=== PATIENT | male | born 1975 | race Caucasian/White ===

== ENCOUNTER 2019-05-14 15:36 | Inpatient (IN) | payer SELFPAY ==
[2019-05-14] VITALS (7 sets, daily range): BP systolic 132–161; BP diastolic 91–108
[~2019-05-14] VITALS: Ht 175 cm; Wt 84.9 kg
[2019-05-14] MEDS ORDERED: 1/2 NS IV SOLUTION 1,000 ML IV PRN (18:07)
[2019-05-14] MEDS ORDERED: THIAMINE INJECTION 100 MG, FOLIC ACID INJECTION 1 MG, MAGNESIUM SULFATE 2 GM, VITAMIN M... IV SCH ×5 (18:07)
[2019-05-14] MEDS ORDERED: LORazepam INJ 2 MG/ML (ATIVAN) VIAL IM/IV PRN (18:15)
[2019-05-14] MEDS ORDERED: ONDANSETRON 4 MG (ZOFRAN) ORAL DISSOLVE TAB SL PRN (18:15)
[2019-05-14] MEDS ORDERED: SENNA W/DOCUSATE (SENOKOT S) TABLET PO PRN (18:15)
[2019-05-14] MEDS ORDERED: D5 1/2 NS 1000 ML IV SOLUTION 1,000 ML IV PRN (18:15)
[2019-05-14] MEDS ORDERED: ONDANSETRON 4 MG/2 ML (SDV) Z0FRAN IV PRN (18:15)
[2019-05-14] MEDS ORDERED: ANTACID SUSP 30 ML UDC (MYLANTA) PO PRN (18:15)
[2019-05-14] MEDS ORDERED: ACETAMINOPHEN 325 MG TABLET PO PRN (18:15)
[2019-05-14] MEDS: ENOXAPARIN 40 MG/0.4 ML (LOVENOX) SYR SC SCH (18:33)
[2019-05-14] MEDS: THIAMINE INJECTION 100 MG, FOLIC ACID INJECTION 1 MG, MAGNESIUM SULFATE 2 GM, VITAMIN M... IV SCH ×5 (18:45)
[2019-05-14] MEDS: LORazepam INJ 2 MG/ML (ATIVAN) VIAL IV PRN (18:46)
[2019-05-14] MEDS: inSUlin ASPART (NovoLOG) 1 UNIT/0.01 ML (CHARGE PER UNIT) SC SCH (21:35)
[2019-05-15] VITALS (22 sets, daily range): BP systolic 105–144; BP diastolic 73–111
[2019-05-15] MEDS: LORazepam INJ 2 MG/ML (ATIVAN) VIAL IV PRN ×6 (00:08→22:20)
[2019-05-15 04:04] LABS: BASOPHILS % (AUTO) 0 % (0-10); EOSINOPHILS # (AUTO) 0.1 10^3/uL (0.0-0.3); EOSINOPHILS % (AUTO) 2 % (0-10); HEMATOCRIT 43 % (40-54); HEMOGLOBIN 14.1 G/DL (13.3-17.7); LYMPHOCYTES # (AUTO) 0.8 X 10^3 (1.0-4.0); LYMPHOCYTES % (AUTO) 26 % (12-44); MEAN CORPUSCULAR HEMOGLOBIN 32 PG (25-34); MEAN CORPUSCULAR HGB CONC 33 G/DL (32-36); MEAN CORPUSCULAR VOLUME 98 FL (80-99); MEAN PLATELET VOLUME 12.6 FL (7.4-10.4); MONOCYTES # (AUTO) 0.4 X 10^3 (0.0-1.0); MONOCYTES % (AUTO) 14 % (0-12); NEUTROPHILS # (AUTO) 1.9 X 10^3 (1.8-7.8); NEUTROPHILS % (AUTO) 58 % (42-75); PLATELET COUNT 55 10^3/uL (130-400); RED CELL DISTRIBUTION WIDTH 13.9 % (10.0-14.5); WHITE BLOOD COUNT 3.3 10^3/uL (4.3-11.0)
[2019-05-15 04:32] LABS: ALANINE AMINOTRANSFERASE 73 U/L (0-55); ALBUMIN 4.1 GM/DL (3.2-4.5); ALKALINE PHOSPHATASE 47 U/L (40-136); BILIRUBIN,TOTAL 1.8 MG/DL (0.1-1.0); BUN/CREATININE RATIO 10; CALCIUM 8.9 MG/DL (8.5-10.1); CARBON DIOXIDE 20 MMOL/L (21-32); CHLORIDE 104 MMOL/L (98-107); CREATININE SERUM 0.67 MG/DL (0.60-1.30); GFR ESTIMATED > 60; GLUCOSE 95 MG/DL (70-105); MAGNESIUM 2.1 MG/DL (1.6-2.4); POTASSIUM 3.8 MMOL/L (3.6-5.0); SODIUM 138 MMOL/L (135-145); TOTAL PROTEIN 6.3 GM/DL (6.4-8.2)
[2019-05-15] MEDS: POTASSIUM CL 10MEQ/50ML IVPB 50 ML IV SCH (05:36)
[2019-05-15] MEDS: KCL 20 MEQ TAB (K-DUR) PO SCH (05:36)
[2019-05-15] MEDS: MAGNESIUM 1 GM/100 ML IVPB 100 ML IV SCH (05:36)
[2019-05-15] MEDS: inSUlin ASPART (NovoLOG) 1 UNIT/0.01 ML (CHARGE PER UNIT) SC SCH ×4 (05:36→20:48)
--- NOTE | 2019-05-15 06:11 | Pulmonary Consultation ---
History of Present Illness History of Present Illness Date Seen by Provider: May 15, 2019 Date of Admission Allergies and Home Medications Allergies Coded Allergies: No Known Drug Allergies (Unverified , 05/14/19) Past Jerkwmz-Qpxlhb-Leatsz Hx Patient Social History Alcohol Use: Regular Use Number of Drinks Today: 0 Alcohol Beverage of Choice: Vodka Recreational Drug Use: No Smoking Status: Never a Smoker Recent Foreign Travel: No Contact w/Someone Who Travel: No Recent Infectious Disease Expo: No Recent Hopitalizations: Yes (March 2019 alcohol detox) Immunizations Up To Date PED Vaccines UTD: Yes Seasonal Allergies Seasonal Allergies: No Past Medical History Surgeries: No Respiratory: No Currently Using CPAP: No Currently Using BIPAP: No Cardiac: Yes Neurological: Yes (Seizure r/t attempted alcohol detox at home) Genitourinary: No Gastrointestinal: No Musculoskeletal: No Endocrine: No HEENT: No Cancer: No Psychosocial: Yes Anxiety Integumentary: No Blood Disorders: No Adverse Reaction/Blood Tranf: No Sepsis Event Evaluation Height, Weight, BMI Height: '" Weight: lbs. oz. kg; 27.46 BMI Method: Exam Exam Vital Signs Date Time Temp Pulse Resp B/P (MAP) Pulse Ox O2 Delivery O2 Flow Rate FiO2 05/15/19 04:00 73 12 118/100 (106) 97 Room Air 05/15/19 03:15 36.6 Room Air 05/15/19 03:15 96 Room Air 05/15/19 03:00 65 12 114/87 (96) 96 Room Air 05/15/19 02:00 68 14 133/111 (118) 96 Room Air 05/15/19 01:00 72 05/15/19 01:00 72 15 127/88 (101) 95 Room Air 05/15/19 00:15 36.7 Room Air 05/15/19 00:00 71 15 130/98 (109) 97 Room Air 05/15/19 00:00 97 Room Air 05/14/19 23:00 72 13 138/102 (114) Room Air 05/14/19 22:00 74 24 132/93 (106) 96 Room Air 05/14/19 21:00 82 16 132/94 (107) 96 Room Air 05/14/19 20:00 86 19 133/95 (108) Room Air 05/14/19 20:00 37.0 05/14/19 20:00 95 Room Air 05/14/19 19:00 105 05/14/19 19:00 105 15 161/91 (114) Room Air 05/14/19 18:00 114 21 147/108 (121) 96 Room Air 05/14/19 17:30 92 20 142/104 (117) 90 Room Air 05/14/19 17:20 115 05/14/19 17:15 97 Room Air I & O 05/15/19 07:00 Intake Total 1935.2 ml Output Total 2275 ml Balance -339.8 ml Height & Weight Height: '" Weight: lbs. oz. kg; 27.46 BMI Method: Capillary Refill: Less Than 3 Seconds Results Lab Laboratory Tests 05/15/19 03:41 Assessment/Plan Assessment/Plan Alcohol depend PETER TOBIAS DO May 15, 2019 06:11
[2019-05-15] MEDS: LACTATED RINGERS 1,000 ML IV SCH ×2 (06:24→20:47)
--- NOTE | 2019-05-15 07:57 | Diagnostic Imaging Report ---
INDICATION: Shortness of air. COMPARISON: None TECHNIQUE: Single frontal view of the chest. FINDINGS: There is mild elevation of the right hemidiaphragm, otherwise lung volumes appear normal. No focal consolidation is seen. There is no pleural effusion or pneumothorax. The cardiac silhouette is normal in size and contour. IMPRESSION:. No acute pulmonary abnormality seen. Dictated by: Dictated on workstation # [id number]
[2019-05-15] MEDS: FOLIC ACID 1 MG TAB PO SCH (08:00)
[2019-05-15] MEDS: PANTOPRAZOLE 40 MG (PROTONIX) VIAL IV SCH (08:00)
[2019-05-15] MEDS: THIAMINE INJECTION 100 MG, FOLIC ACID INJECTION 1 MG, MAGNESIUM SULFATE 2 GM, VITAMIN M... IV SCH ×5 (08:00)
[2019-05-15] MEDS ORDERED: LORA10TA76 PO (09:25)
[2019-05-15] MEDS ORDERED: LISI10TA2 PO (09:25)
--- NOTE | 2019-05-15 09:25 | NUR ---
SPOKE WITH THE PT AND CALLED [facility] TO COMPLETE THE MED REC. PT SAYS HE TAKES LISINOPRIL 10MG (LAST FILLED 03-29-2019 #30)- I DOCUMENTED THE PAST DUE FILL DATE ON THE MED REC. PT ALSO SAYS HE TAKES SERTRALINE 100MG. WHEN I CALLED [facility] THEY FILLED SERTRALINE 50MG ON 01-08-2019 #30 AND HAD A SCRIPT ON HOLD FOR SERTRALINE 100MG THAT WAS SENT IN ON 05-11-2019 BUT WAS NEVER PICKED UP. DUE TO THE PAST DUE FILL I DID NOT INCLUDE THIS ON THE MED REC. OTC MEDS: DIANNA NAIK
--- NOTE | 2019-05-15 11:37 | NUR ---
CM/SS: Visited with pt as per consult for need Plan: Pt plans to seek Alcohol treatment services on an out patient basis Summary: Visited with pt as to his reason for admission. Pt reports that he has a problem with alcohol. Pt is given options as to out patient services for alcohol treatment, or inpatient services. Pt feels as if outpatient services can meet his needs. Pt reports his parents made him come to their home and sought help for him or he would of . Pt reports, he has a and children ages 6 and 9, and that when he lost his job, in [place], [place] - reportedly unrelated to alcohol, his left and took the children. Pt reports that he feels as if he has to get back on track. Pt currently has no insurance. Pt is open to getting information on services in the area for alcohol treatment. Patient is provided information on [facility], as well as [facility], and [facility] support program. Pt is given copies and contact information. Pt expresses appreciation for the information and is encouraged to contact each agency and see which one he is most comfortable with and the one that can get him in the quickest. He is open to do so. Pt thanks this worker for the information.
--- NOTE | 2019-05-15 17:16 | History & Physical-Hospitalist ---
History of Present Illness HPI/Chief Complaint Ta Delacruz is a 49-year-old male with past medical history of alcohol dependence who presented with alcohol withdrawal requesting to detox. He reports that his last drink was 24-48 hours before his arrival. He reports drinking 1/2-1 pint of vodka daily for the past couple years. He says that he did stop drinking in March and had an alcohol withdrawal seizure. He was hospitalized at a different facility at that time. He reports having tremors. He denies any headache or confusion. He denies any nausea or vomiting. He denies any visual/auditory/tactile hallucinations. He denies any fevers or chills. He denies any chest pain or shortness of breath. He denies any abdominal pain. Source: patient Exam Limitations: no limitations Date Seen 05/15/19 Time Seen by a Provider: 09:50 Attending Physician Daria Quintero MD PCP Mariela Sierra MD Referring Physician Date of Admission May 14, 2019 at 17:06 Home Medications & Allergies Home Medications Reviewed patient Home Medication Reconciliation performed by pharmacy medication reconciliations critical systems technician and/or nursing. Patients Allergies have been reviewed. Allergies Allergies Coded Allergies No Known Drug Allergies (Unverified05/14/19) Past Rjipdmt-Lrzzto-Kslemq Hx Past Med/Social Hx: Reviewed Nursing Past Med/Soc Hx Patient Social History Alcohol Use: Regular Use Number of Drinks Today: 0 Alcohol Beverage of Choice: Vodka Recreational Drug Use: No Smoking Status: Never a Smoker Physical Abuse Screen: No Sexual Abuse: No Recent Foreign Travel: No Contact w/other who traveled: No Recent Hopitalizations: Yes (March 2019 alcohol detox) Recent Infectious Disease Expo: No Immunizations Up To Date Pediatric: Yes Seasonal Allergies Seasonal Allergies: No Past Medical History Currently Using CPAP: No Currently Using BIPAP: No Psychosocial: Anxiety History of Blood Disorders: No Adverse Reaction to Blood Varghese: No Review of Systems Constitutional: no symptoms reported EENTM: no symptoms reported Respiratory: no symptoms reported Cardiovascular: no symptoms reported Gastrointestinal: no symptoms reported Genitourinary: no symptoms reported Musculoskeletal: no symptoms reported Skin: no symptoms reported Psychiatric/Neurological: Anxiety, Tremors Physical Exam Physical Exam Vital Signs Vital Signs - First Documented 05/14/19 05/14/19 05/14/19 17:15 17:20 17:30 Pulse 115 Resp 20 B/P (MAP) 142/104 (117) Pulse Ox 97 O2 Delivery Room Air Capillary Refill : Less Than 3 Seconds Height, Weight, BMI Height: '" Weight: lbs. oz. kg; 27.46 BMI Method: General Appearance: Anxious, Mild Distress HEENT: PERRL/EOMI, Pharynx Normal Neck: Normal Inspection, Supple Respiratory: Lungs Clear, Normal Breath Sounds, No Respiratory Distress Cardiovascular: No Edema, No Murmur, Tachycardia Gastrointestinal: Normal Bowel Sounds, Non Tender, Soft Extremity: Normal Inspection, Non Tender, No Pedal Edema Neurologic/Psychiatric: Alert, Oriented x3, Other (Tremulous) Skin: Warm/Dry, Diaphoresis, Other (Facial flushing) Results Results/Procedures Labs Laboratory Tests 05/15/19 03:41 Patient resulted labs reviewed. Imaging: Reviewed Imaging Report Assessment/Plan Admission Diagnosis Alcohol dependence with acute alcohol withdrawal Admission Status: Inpatient Order (span 2 midnights) Reason for Inpatient Admission: Alcohol withdrawal requiring IV benzos Assessment and Plan Alcohol dependence with acute alcohol withdrawal Acute alcoholic hepatitis Alcohol undetectable on arrival Last drink 24-48 hours prior to admission AST/ALT/T bili mildly elevated, continue to trend CIWA protocol initiated Continue vitamin replacement Monitor labs daily Continue IV fluid replacement Leukopenia Thrombocytopenia WBC 3.3, platelets 55 Likely due to alcohol Check B12 and folate levels Continue to monitor DVT prophylaxis: Lovenox Diagnosis/Problems Diagnosis/Problems (1) Alcohol dependence with withdrawal Status: Acute (2) Leukopenia Status: Acute (3) Thrombocytopenia Status: Acute Clinical Quality Measures DVT/VTE Risk/Contraindication: Risk Factor Score Per Nursin RFS Level Per Nursing on Admit: 1=Low/No VTE PPX DARIA QUINTERO MD May 15, 2019 17:03
[2019-05-15] MEDS: ENOXAPARIN 40 MG/0.4 ML (LOVENOX) SYR SC SCH (17:47)
[2019-05-15] MEDS ORDERED: LIDOCAINE UROJET 2% GEL 10 ML PKG ONE (19:52)
[2019-05-15] MEDS: DexMEDEtomidine 250 ML DRIP 250 ML IV PRN (20:21)
[2019-05-16] VITALS (22 sets, daily range): BP systolic 105–138; BP diastolic 68–107
[2019-05-16] MEDS: LACTATED RINGERS 1,000 ML IV SCH ×2 (02:20→16:30)
[2019-05-16] MEDS: LORazepam INJ 2 MG/ML (ATIVAN) VIAL IV PRN (03:33)
[2019-05-16 03:41] LABS: BASOPHILS % (AUTO) 0 % (0-10); EOSINOPHILS # (AUTO) 0.1 10^3/uL (0.0-0.3); EOSINOPHILS % (AUTO) 2 % (0-10); HEMATOCRIT 40 % (40-54); HEMOGLOBIN 13.7 G/DL (13.3-17.7); LYMPHOCYTES % (AUTO) 20 % (12-44); MEAN CORPUSCULAR HEMOGLOBIN 33 PG (25-34); MEAN CORPUSCULAR HGB CONC 34 G/DL (32-36); MEAN CORPUSCULAR VOLUME 97 FL (80-99); MEAN PLATELET VOLUME 11.6 FL (7.4-10.4); MONOCYTES # (AUTO) 0.6 X 10^3 (0.0-1.0); MONOCYTES % (AUTO) 12 % (0-12); NEUTROPHILS # (AUTO) 3.1 X 10^3 (1.8-7.8); NEUTROPHILS % (AUTO) 66 % (42-75); PLATELET COUNT 63 10^3/uL (130-400); RED CELL DISTRIBUTION WIDTH 13.6 % (10.0-14.5); WHITE BLOOD COUNT 4.7 10^3/uL (4.3-11.0)
--- NOTE | 2019-05-16 03:59 | Pulmonary Progress Note ---
AGUILAR PRETTY MEDICAL STUDENT 05/16/19 0343: Subjective Date Seen by a Provider: May 16, 2019 Time Seen by a Provider: 06:00 Subjective/Events-last exam Per nursing, patient has been suspicious and paranoid overnight. PRN Precedex gtt was started overnight to help with his anxiety. He has needed occasional reorientation as mild confusion has set in. CIWA of 10 immediately prior to this morning's exam. Review of Systems General: Chills; No Fatigue HEENT: No Visual Changes, No Eye Pain Pulmonary: No Dyspnea, No Cough Cardiovascular: No: Chest Pain, Palpitations Gastrointestinal: No: Abdominal Pain, Diarrhea Genitourinary: No Dysuria, No Frequency Musculoskeletal: No: neck pain, back pain Neurological: No: Weakness, Numbness Sepsis Event Evaluation Height, Weight, BMI Height: '" Weight: lbs. oz. kg; 27.46 BMI Method: Exam Exam Vital Signs Date Time Temp Pulse Resp B/P (MAP) Pulse Ox O2 Delivery O2 Flow Rate FiO2 05/16/19 03:00 69 17 120/97 (105) 95 Room Air 05/16/19 02:00 68 21 105/73 (84) 95 Room Air 05/16/19 01:00 71 22 115/87 (96) 94 Room Air 05/16/19 01:00 71 05/16/19 00:00 74 18 114/85 (95) 93 Room Air 05/15/19 23:35 96 Room Air 05/15/19 23:35 36.6 Room Air 05/15/19 23:00 78 16 121/87 (98) 94 Room Air 05/15/19 22:00 81 22 115/77 (90) 95 Room Air 05/15/19 21:00 90 13 137/98 (111) 94 Room Air 05/15/19 20:21 85 138/101 05/15/19 20:00 105 35 138/101 (113) 94 Room Air 05/15/19 20:00 36.6 05/15/19 20:00 98 Room Air 05/15/19 20:00 05/15/19 19:00 96 05/15/19 19:00 96 8 127/94 (105) 94 Room Air 05/15/19 18:00 122 96 Room Air 05/15/19 17:00 106 138/100 (113) Room Air 05/15/19 16:00 96 39 Room Air 05/15/19 16:00 Room Air 05/15/19 15:00 108 22 127/97 (107) 91 Room Air 05/15/19 14:00 106 21 144/99 (114) 94 Room Air 05/15/19 13:00 103 9 123/97 (106) 92 Room Air 05/15/19 12:24 117 05/15/19 12:00 131 20 105/73 (84) 94 Room Air 05/15/19 12:00 Room Air 05/15/19 11:55 37.4 05/15/19 11:00 105 21 132/98 (109) 94 Room Air 05/15/19 10:00 105 22 132/98 (109) 96 Room Air 05/15/19 09:00 121 19 124/86 (99) 96 Room Air 05/15/19 09:00 37.4 Room Air 05/15/19 08:00 130 26 123/101 (108) Room Air 05/15/19 08:00 Room Air 05/15/19 07:00 71 15 138/96 (110) 95 Room Air 05/15/19 07:00 105 05/15/19 06:00 74 16 125/84 (98) 96 Room Air 05/15/19 05:00 82 112/87 (95) Room Air 05/15/19 04:00 73 12 118/100 (106) 97 Room Air I & O 05/16/19 07:00 Intake Total 2680 ml Output Total 1850 ml Balance 830 ml Height & Weight Height: '" Weight: lbs. oz. kg; 27.46 BMI Method: General Appearance: Anxious, Mild Distress HEENT: Moist Mucous Membranes; No Photophobia Neck: Full Range of Motion, Supple Respiratory: Lungs Clear, Normal Breath Sounds, No Respiratory Distress Cardiovascular: Regular Rate, Rhythm, No Edema, No Murmur, Tachycardia Capillary Refill: Less Than 3 Seconds Peripheral Pulses: 2+ Radial Pulses (R), 2+ Radial Pulses (L) Gastrointestinal: non tender, soft Extremity: Non Tender, No Pedal Edema Neurologic/Psychiatric: Alert, Other (Tremulous) Skin: Normal Color, Warm/Dry, Other (Facial flushing) Lymphatic: No Adenopathy Results Lab Laboratory Tests 05/15/19 03:41 Assessment/Plan Assessment/Plan Alcohol Dependence with Withdrawal -Continue detox with CIWA checks q1hr -Continue PRN Precedex gtt Thrombocytopenia, improving -Continue to monitor Leukopenia, resolved -Continue to monitor PETER KOENIG DO 05/16/19 0643: Subjective Time Seen by a Provider: 06:42 Exam Exam General Appearance: Anxious, Mild Distress HEENT: Moist Mucous Membranes; No Photophobia Neck: Full Range of Motion, Supple Respiratory: Lungs Clear, Normal Breath Sounds, No Respiratory Distress Cardiovascular: Regular Rate, Rhythm, No Edema, No Murmur Gastrointestinal: non tender, soft Extremity: Non Tender, No Pedal Edema Neurologic/Psychiatric: Alert Skin: Normal Color, Warm/Dry Lymphatic: No Adenopathy Assessment/Plan Assessment/Plan Alcohol Dependence with Withdrawal -Continue detox with CIWA checks q1hr -Continue PRN Precedex gtt Thrombocytopenia, improving -Continue to monitor Leukopenia, resolved -Continue to monitor Supervisory-Addendum Brief Verification & Attestation Participated in pt care: history Personally performed: history Care discussed with: Medical Student Procedures: n/a Verification and Attestation of Medical Student E/M Service A medical student performed and documented this service in my presence. I reviewed and verified all information documented by the medical student and made modifications to such information, when appropriate. I personally performed the physical exam and medical decision making. Peter Koenig, May 16, 2019,10:31 AGUILAR PRETTY MEDICAL STUDENT May 16, 2019 03:43 PETER KOENIG DO May 16, 2019 06:43
[2019-05-16 04:01] LABS: ALANINE AMINOTRANSFERASE 56 U/L (0-55); ALBUMIN 3.9 GM/DL (3.2-4.5); ALKALINE PHOSPHATASE 46 U/L (40-136); BILIRUBIN,TOTAL 1.3 MG/DL (0.1-1.0); BUN/CREATININE RATIO 11; CALCIUM 8.7 MG/DL (8.5-10.1); CARBON DIOXIDE 21 MMOL/L (21-32); CHLORIDE 107 MMOL/L (98-107); CREATININE SERUM 0.75 MG/DL (0.60-1.30); GFR ESTIMATED > 60; GLUCOSE 107 MG/DL (70-105); MAGNESIUM 2.1 MG/DL (1.6-2.4); PHOSPHORUS 3.6 MG/DL (2.3-4.7); POTASSIUM 3.7 MMOL/L (3.6-5.0); SODIUM 138 MMOL/L (135-145); TOTAL PROTEIN 6.1 GM/DL (6.4-8.2)
[2019-05-16] MEDS: MAGNESIUM 1 GM/100 ML IVPB 100 ML IV SCH (04:05)
[2019-05-16] MEDS: inSUlin ASPART (NovoLOG) 1 UNIT/0.01 ML (CHARGE PER UNIT) SC SCH ×4 (04:05→20:50)
[2019-05-16] MEDS: KCL 20 MEQ TAB (K-DUR) PO SCH (04:05)
[2019-05-16] MEDS: POTASSIUM CL 10MEQ/50ML IVPB 50 ML IV SCH (04:05)
[2019-05-16] MEDS: PANTOPRAZOLE 40 MG (PROTONIX) VIAL IV SCH (09:28)
[2019-05-16] MEDS: THIAMINE INJECTION 100 MG, FOLIC ACID INJECTION 1 MG, MAGNESIUM SULFATE 2 GM, VITAMIN M... IV SCH ×10 (09:28→11:17)
[2019-05-16] MEDS: FOLIC ACID 1 MG TAB PO SCH (09:28)
[2019-05-16] MEDS ORDERED: MULTIVIT W/MINERALS TAB (THERAGRAN M) ONE (11:05)
[2019-05-16] MEDS ORDERED: MAGNESIUM OXIDE (MAG-OX)400 MG TAB ONE (11:05)
[2019-05-16] MEDS ORDERED: CYANOCOBALAMIN 1,000 MCG (VITAMIN B-12) TABLET ONE (11:05)
[2019-05-16] MEDS ORDERED: THIAMINE 100 MG (VITAMIN B-1) TAB ONE (11:10)
[2019-05-16] MEDS: MAGNESIUM OXIDE (MAG-OX)400 MG TAB PO SCH (11:13)
[2019-05-16] MEDS: MULTIVIT W/MINERALS TAB (THERAGRAN M) PO SCH (11:14)
[2019-05-16] MEDS: THIAMINE 100 MG (VITAMIN B-1) TAB PO SCH (11:16)
--- NOTE | 2019-05-16 13:28 | Progress Note - Hospitalist ---
Subjective HPI/CC On Admission Date Seen by Provider: May 16, 2019 Time Seen by Provider: 08:40 Ta Delacruz is a 49-year-old male with past medical history of alcohol dependence who presented with alcohol withdrawal requesting to detox. He reports that his last drink was 24-48 hours before his arrival. He reports drinking 1/2-1 pint of vodka daily for the past couple years. He says that he did stop drinking in March and had an alcohol withdrawal seizure. He was hospitalized at a different facility at that time. He reports having tremors. He denies any headache or confusion. He denies any nausea or vomiting. He denies any visual/auditory/tactile hallucinations. He denies any fevers or chills. He denies any chest pain or shortness of breath. He denies any abdominal pain. Subjective/Events-last exam He is alert and oriented this morning. He denies any headache. He denies any hallucinations. He denies any nausea or vomiting. He denies any diaphoresis. He has a mild tremor. He has no other complaints or concerns. Objective Exam Vital Signs Vital Signs Date Time Temp Pulse Resp B/P (MAP) Pulse Ox O2 Delivery O2 Flow Rate FiO2 05/16/19 12:00 67 19 97 Room Air 05/16/19 07:46 36.9 Capillary Refill : Less Than 3 Seconds General Appearance: No Apparent Distress, Anxious Respiratory: Lungs Clear, Normal Breath Sounds, No Respiratory Distress Cardiovascular: Regular Rate, Rhythm, No Edema, No Murmur Gastrointestinal: Normal Bowel Sounds, Non Tender, Soft Extremity: Normal Inspection, Non Tender, No Pedal Edema Neurologic/Psychiatric: Alert, Oriented x3, Other (Tremulous) Skin: Other (Facial flushing) Results/Procedures Lab Laboratory Tests 05/16/19 03:21 Patient resulted labs reviewed. Imaging: Reviewed Imaging Report Assessment/Plan Assessment and Plan Assess & Plan/Chief Complaint Alcohol dependence with acute alcohol withdrawal Acute alcoholic hepatitis LFTs improving Continue CIWA protocol Started on Precedex Thrombocytopenia WBC 4.7, platelets 62 Likely due to alcohol B12 and folate levels normal DVT prophylaxis: Lovenox Leukopenia, resolved Diagnosis/Problems Diagnosis/Problems (1) Alcohol dependence with withdrawal Status: Acute (2) Leukopenia Status: Resolved Resolution Date/Time: 05/16/19 @ 13:28 (3) Thrombocytopenia Status: Acute Clinical Quality Measures DVT/VTE Risk/Contraindication: Risk Factor Score Per Nursin RFS Level Per Nursing on Admit: 1=Low/No VTE PPX TRACY QUINTERO MD May 16, 2019 13:28
--- NOTE | 2019-05-16 13:57 | NUR ---
"RD ASSESSMENT PMHx: ETOH dependence PT INTERACTION: Pt was awake and pleasant during nutrition assessment. Pt states current appetite is pretty good, but had been so-so prior to admit. Note avg PO intake of 50% of meals, per chart review. Pt states following a regular diet at home and has no issues with chewing/swallowing food. Pt states no recent issues with n/v/c/d at this time. Note last BM was 3/4 and pt currently on bowel regimen of senna PRN, per chart review. Pt states recent 5# wt loss x6mon. Note unable to determine recent wt hx, per chart review. ABNORMAL NUTRITION-RELATED LAB VALUES LOW: Pro 6.1 HIGH: bili 1.3; glu 107; AST 50; ALT 56 Est. kcal needs: 1316-9099 kcal | 20-25 kcal/kg Est. Pro needs: 69-86 g Pro | 0.8-1.0 g Pro/kg PES STATEMENT: Inadequate oral intake (NI-2.1) related to loss of appetite as evidenced by pt interview | avg PO intake 50% of meals INTERVENTION: Continue with current diet order of Regular diet. Pt may benefit from nutrition supplementation if PO intake declines. Will continue to follow and reassess as pt needs, intake, and status change. MONITOR/EVALUATE: PO Intake; Plan of Care; Hydration Status; Weight Status; Lab Values Tereza Chappell, MS, RD, LD"
--- NOTE | 2019-05-16 15:43 | NUR ---
CM/SS: Visited with pt as to how he is doing today and to see if he has made contact with any of the outpatient substance abuse providers. Plan: Pt to discharge to home with utilizing outpatient Substance Abuse Treatment services when deemed appropriate Summary: Pt reports feeling better today, pt reports he is doing ok. Pt is asked about if he has utilized the information he was given to contact any of the substance abuse outpatient services he reports that he has not. Pt is encouraged to do so. Pt thanked this worker for checking.
[2019-05-16] MEDS: LORazepam 1 MG (ATIVAN) TAB PO PRN ×2 (16:42→23:30)
[2019-05-16] MEDS: ENOXAPARIN 40 MG/0.4 ML (LOVENOX) SYR SC SCH (19:17)
[2019-05-17] VITALS (13 sets, daily range): BP systolic 122–142; BP diastolic 71–108
[2019-05-17] MEDS: DexMEDEtomidine 250 ML DRIP 250 ML IV PRN (02:07)
[2019-05-17 03:26] LABS: BASOPHILS % (AUTO) 0 % (0-10); EOSINOPHILS # (AUTO) 0.1 10^3/uL (0.0-0.3); EOSINOPHILS % (AUTO) 2 % (0-10); HEMATOCRIT 41 % (40-54); HEMOGLOBIN 13.2 G/DL (13.3-17.7); LYMPHOCYTES # (AUTO) 1.4 X 10^3 (1.0-4.0); LYMPHOCYTES % (AUTO) 28 % (12-44); MEAN CORPUSCULAR HEMOGLOBIN 32 PG (25-34); MEAN CORPUSCULAR HGB CONC 33 G/DL (32-36); MEAN CORPUSCULAR VOLUME 100 FL (80-99); MEAN PLATELET VOLUME 12.2 FL (7.4-10.4); MONOCYTES # (AUTO) 0.8 X 10^3 (0.0-1.0); MONOCYTES % (AUTO) 17 % (0-12); NEUTROPHILS # (AUTO) 2.6 X 10^3 (1.8-7.8); NEUTROPHILS % (AUTO) 53 % (42-75); PLATELET COUNT 82 10^3/uL (130-400); RED CELL DISTRIBUTION WIDTH 13.1 % (10.0-14.5); WHITE BLOOD COUNT 4.9 10^3/uL (4.3-11.0)
[2019-05-17 03:51] LABS: ALANINE AMINOTRANSFERASE 56 U/L (0-55); ALBUMIN 3.7 GM/DL (3.2-4.5); ALKALINE PHOSPHATASE 42 U/L (40-136); BILIRUBIN,TOTAL 0.8 MG/DL (0.1-1.0); BUN/CREATININE RATIO 11; CALCIUM 8.9 MG/DL (8.5-10.1); CARBON DIOXIDE 20 MMOL/L (21-32); CHLORIDE 107 MMOL/L (98-107); CREATININE SERUM 0.74 MG/DL (0.60-1.30); GFR ESTIMATED > 60; GLUCOSE 103 MG/DL (70-105); MAGNESIUM 1.8 MG/DL (1.6-2.4); PHOSPHORUS 3.6 MG/DL (2.3-4.7); POTASSIUM 3.8 MMOL/L (3.6-5.0); SODIUM 137 MMOL/L (135-145); TOTAL PROTEIN 5.9 GM/DL (6.4-8.2)
[2019-05-17] MEDS: KCL 20 MEQ TAB (K-DUR) PO SCH (04:04)
[2019-05-17] MEDS: POTASSIUM CL 10MEQ/50ML IVPB 50 ML IV SCH (04:04)
[2019-05-17] MEDS: MAGNESIUM 1 GM/100 ML IVPB 100 ML IV SCH (04:04)
[2019-05-17] MEDS: inSUlin ASPART (NovoLOG) 1 UNIT/0.01 ML (CHARGE PER UNIT) SC SCH ×2 (04:05→11:00)
[2019-05-17] MEDS: THIAMINE 100 MG (VITAMIN B-1) TAB PO SCH (04:14)
[2019-05-17] MEDS: MULTIVIT W/MINERALS TAB (THERAGRAN M) PO SCH (04:14)
[2019-05-17] MEDS: LORazepam 1 MG (ATIVAN) TAB PO PRN ×7 (04:14→20:18)
--- NOTE | 2019-05-17 04:46 | Pulmonary Progress Note ---
Subjective Time Seen by a Provider: 04:44 Subjective/Events-last exam Pt is doing better. Sepsis Event Evaluation Height, Weight, BMI Height: '" Weight: lbs. oz. kg; 27.46 BMI Method: Exam Exam Vital Signs Date Time Temp Pulse Resp B/P (MAP) Pulse Ox O2 Delivery O2 Flow Rate FiO2 05/17/19 04:00 96 Room Air 05/17/19 02:07 55 138/108 05/17/19 02:00 55 19 138/108 (118) 96 Room Air 05/17/19 01:00 60 05/17/19 01:00 59 21 137/105 (116) 96 Room Air 05/17/19 00:00 63 21 137/101 (113) 96 Room Air 05/16/19 23:30 97 Room Air 05/16/19 23:30 36.9 Room Air 05/16/19 23:00 60 14 128/101 (110) 95 Room Air 05/16/19 22:00 58 18 95 Room Air 05/16/19 21:00 61 16 125/104 (111) 95 Room Air 05/16/19 20:00 66 19 136/98 (111) 94 Room Air 05/16/19 19:50 94 Room Air 05/16/19 19:45 36.5 62 17 135/102 (113) 95 Room Air 05/16/19 19:00 80 05/16/19 19:00 78 20 129/105 (113) 96 Room Air 05/16/19 18:00 66 13 132/92 (105) 96 Room Air 05/16/19 17:00 68 10 138/107 (117) 97 Room Air 05/16/19 16:00 36.2 05/16/19 16:00 89 38 131/105 (114) 79 Room Air 05/16/19 16:00 Room Air 05/16/19 15:00 64 21 116/91 (99) 94 Room Air 05/16/19 14:00 82 18 121/96 (104) 94 Room Air 05/16/19 13:00 99 106/68 (81) 95 Room Air 05/16/19 12:31 80 05/16/19 12:00 67 19 97 Room Air 05/16/19 12:00 Room Air 05/16/19 11:00 65 26 94 Room Air 05/16/19 10:00 70 18 120/99 (106) 94 Room Air 05/16/19 09:00 73 21 111/81 (91) 96 Room Air 05/16/19 08:00 79 17 113/83 (93) 95 Room Air 05/16/19 08:00 Room Air 05/16/19 07:46 36.9 05/16/19 07:00 93 26 132/102 (112) 99 Room Air 05/16/19 06:40 88 05/16/19 06:00 65 18 128/99 (109) 96 Room Air 05/16/19 05:00 68 18 123/98 (106) 94 Room Air I & O 05/17/19 07:00 Intake Total 4880 ml Output Total 3125 ml Balance 1755 ml Height & Weight Height: '" Weight: lbs. oz. kg; 27.46 BMI Method: General Appearance: No Apparent Distress, Anxious HEENT: Moist Mucous Membranes; No Photophobia Neck: Full Range of Motion, Supple Respiratory: Lungs Clear, Normal Breath Sounds, No Respiratory Distress Cardiovascular: Regular Rate, Rhythm, No Edema, No Murmur Capillary Refill: Less Than 3 Seconds Peripheral Pulses: 2+ Radial Pulses (R), 2+ Radial Pulses (L) Gastrointestinal: non tender, soft Extremity: Normal Inspection, Non Tender, No Pedal Edema Neurologic/Psychiatric: Alert, Oriented x3, Other (Tremulous) Skin: Other (Facial flushing) Lymphatic: No Adenopathy Results Lab Laboratory Tests 05/16/19 03:21 05/17/19 03:07 Assessment/Plan Assessment/Plan Alcohol Dependence with Withdrawal -Continue detox with CIWA checks q1hr -Titrate Precedex gtt to D/c as tolerated Thrombocytopenia, improving -Continue to monitor Leukopenia, resolved -Continue to monitor PETER TOBIAS DO May 17, 2019 04:46
[2019-05-17] MEDS: FOLIC ACID 1 MG TAB PO SCH (09:02)
[2019-05-17] MEDS: PANTOPRAZOLE 40 MG (PROTONIX) VIAL IV SCH (09:03)
[2019-05-17] MEDS: MAGNESIUM OXIDE (MAG-OX)400 MG TAB PO SCH (09:03)
[2019-05-17] MEDS: LACTATED RINGERS 1,000 ML IV SCH (11:35)
[2019-05-17] MEDS ORDERED: PROPRANOLOL 20 MG (INDERAL) TABLET PO NR (14:15)
--- NOTE | 2019-05-17 14:22 | Progress Note - Hospitalist ---
Subjective HPI/CC On Admission Date Seen by Provider: May 17, 2019 Time Seen by Provider: 09:45 Ta Delacruz is a 49-year-old male with past medical history of alcohol dependence who presented with alcohol withdrawal requesting to detox. He reports that his last drink was 24-48 hours before his arrival. He reports drinking 1/2-1 pint of vodka daily for the past couple years. He says that he did stop drinking in March and had an alcohol withdrawal seizure. He was hospitalized at a different facility at that time. He reports having tremors. He denies any headache or confusion. He denies any nausea or vomiting. He denies any visual/auditory/tactile hallucinations. He denies any fevers or chills. He denies any chest pain or shortness of breath. He denies any abdominal pain. Subjective/Events-last exam he reports feeling better today. He has no complaints or concerns. He has a tremor which is a chronic issue. He denies any fevers or chills. He denies any chest pain or shortness of breath. He denies any nausea or vomiting. Objective Exam Vital Signs Vital Signs Date Time Temp Pulse Resp B/P (MAP) Pulse Ox O2 Delivery O2 Flow Rate FiO2 05/17/19 13:00 108 05/17/19 12:00 96 Room Air 05/17/19 11:00 36.8 20 138/102 (114) Capillary Refill : Less Than 3 Seconds General Appearance: No Apparent Distress, Anxious Respiratory: Lungs Clear, Normal Breath Sounds, No Respiratory Distress Cardiovascular: Regular Rate, Rhythm, No Edema, No Murmur Gastrointestinal: Normal Bowel Sounds, Non Tender, Soft Extremity: Normal Inspection, Non Tender, No Pedal Edema Neurologic/Psychiatric: Alert, Oriented x3, No Motor/Sensory Deficits, Normal Mood/Affect, Other (tremulous) Skin: Normal Color, Warm/Dry Results/Procedures Lab Laboratory Tests 05/17/19 03:07 Patient resulted labs reviewed. Imaging: Reviewed Imaging Report Assessment/Plan Assessment and Plan Assess & Plan/Chief Complaint Alcohol dependence with acute alcohol withdrawal Continue CIWA protocol transfer to fourth floor Social work consulted, appreciate assistance Thrombocytopenia Likely due to alcohol WBC 4.9, platelets 82, improving Essential tremor Start propranolol DVT prophylaxis: Lovenox Leukopenia, resolved Acute alcoholic hepatitis, resolved Diagnosis/Problems Diagnosis/Problems (1) Alcohol dependence with withdrawal Status: Acute (2) Leukopenia Status: Resolved Resolution Date/Time: 05/16/19 @ 13:28 (3) Thrombocytopenia Status: Acute (4) Essential tremor Status: Chronic Clinical Quality Measures DVT/VTE Risk/Contraindication: Risk Factor Score Per Nursin RFS Level Per Nursing on Admit: 1=Low/No VTE PPX TRACY QUINTERO MD May 17, 2019 14:22
--- NOTE | 2019-05-17 15:15 | NUR ---
PT ARRIVED TO ROOM. GETTING INTO THE SHOWER NOW. THIS RN TO RESUME CARE. THIS RN AGREES WITH PREVIOUS RN'S ASSESSMENT.
[2019-05-17] MEDS: ENOXAPARIN 40 MG/0.4 ML (LOVENOX) SYR SC SCH (18:23)
--- NOTE | 2019-05-17 20:04 | NUR ---
PT REQUESTS MEDICATION TO HELP HIM SLEEP TONIGHT. DR. FISHER NOTIFIED. ORDER FOR MELATONIN 6MP PO HS PRN ORDERED AT THIS TIME.
[2019-05-17] MEDS ORDERED: MELATONIN 3 MG TABLET PO PRN (20:15)
[2019-05-17] MEDS: PROPRANOLOL 20 MG (INDERAL) TABLET PO SCH (20:17)
[2019-05-17] MEDS: LORazepam INJ 2 MG/ML (ATIVAN) VIAL IV PRN (23:17)
[2019-05-18 03:48] VITALS: BP 132/88
[2019-05-18 04:55] LABS: BASOPHILS % (AUTO) 0 % (0-10); EOSINOPHILS # (AUTO) 0.1 10^3/uL (0.0-0.3); EOSINOPHILS % (AUTO) 2 % (0-10); HEMATOCRIT 41 % (40-54); HEMOGLOBIN 13.8 G/DL (13.3-17.7); LYMPHOCYTES # (AUTO) 1.2 X 10^3 (1.0-4.0); LYMPHOCYTES % (AUTO) 24 % (12-44); MEAN CORPUSCULAR HEMOGLOBIN 33 PG (25-34); MEAN CORPUSCULAR HGB CONC 34 G/DL (32-36); MEAN CORPUSCULAR VOLUME 97 FL (80-99); MEAN PLATELET VOLUME 11.6 FL (7.4-10.4); MONOCYTES # (AUTO) 1.3 X 10^3 (0.0-1.0); MONOCYTES % (AUTO) 25 % (0-12); NEUTROPHILS # (AUTO) 2.4 X 10^3 (1.8-7.8); NEUTROPHILS % (AUTO) 48 % (42-75); PLATELET COUNT 129 10^3/uL (130-400); RED CELL DISTRIBUTION WIDTH 13.4 % (10.0-14.5)
[2019-05-18 05:19] LABS: ALANINE AMINOTRANSFERASE 61 U/L (0-55); ALBUMIN 3.9 GM/DL (3.2-4.5); ALKALINE PHOSPHATASE 48 U/L (40-136); BILIRUBIN,TOTAL 0.7 MG/DL (0.1-1.0); BUN/CREATININE RATIO 14; CALCIUM 9.2 MG/DL (8.5-10.1); CARBON DIOXIDE 23 MMOL/L (21-32); CHLORIDE 106 MMOL/L (98-107); GFR ESTIMATED > 60; GLUCOSE 101 MG/DL (70-105); MAGNESIUM 1.9 MG/DL (1.6-2.4); PHOSPHORUS 4.4 MG/DL (2.3-4.7); POTASSIUM 4.1 MMOL/L (3.6-5.0); SODIUM 139 MMOL/L (135-145); TOTAL PROTEIN 6.5 GM/DL (6.4-8.2)
[2019-05-18 05:24] LABS: EOSINOPHILS % (MANUAL) 3 %; LYMPHOCYTES % (MANUAL) 26 %; METAMYELOCYTES % 1 %; MONOCYTES % (MANUAL) 22 %; NEUTROPHILS % (MANUAL) 48 %
[2019-05-18 05:25] LABS: RBC MORPH NORMAL
[2019-05-18] MEDS: KCL 20 MEQ TAB (K-DUR) PO SCH (05:27)
[2019-05-18] MEDS: POTASSIUM CL 10MEQ/50ML IVPB 50 ML IV SCH (05:27)
[2019-05-18] MEDS: MAGNESIUM 1 GM/100 ML IVPB 100 ML IV SCH (05:27)
[2019-05-18] MEDS: THIAMINE 100 MG (VITAMIN B-1) TAB PO SCH (05:41)
[2019-05-18] MEDS: LORazepam 1 MG (ATIVAN) TAB PO PRN ×2 (05:41→10:23)
[2019-05-18] MEDS: MULTIVIT W/MINERALS TAB (THERAGRAN M) PO SCH (05:41)
[2019-05-18 08:00] VITALS: BP 141/94
[2019-05-18] MEDS: FOLIC ACID 1 MG TAB PO SCH (08:05)
[2019-05-18] MEDS: PANTOPRAZOLE 40 MG (PROTONIX) VIAL IV SCH (08:05)
[2019-05-18] MEDS: PROPRANOLOL 20 MG (INDERAL) TABLET PO SCH (08:05)
[2019-05-18] MEDS ORDERED: PROP20TA5 PO (10:47)
--- NOTE | 2019-05-18 13:28 | NUR ---
CM/SS: Visited with pt as to his going home and discharging today Plan: Pt will be going to his parents home to stay and will follow up with [facility] for an appointment for Substance Abuse. Summary: Pt reports he called [facility] to make an appointment and they have asked him to come by and complete some paperwork. He verbalizes understanding of the location of the office. He reports that he will be going there as soon as he leaves the hospital. Pt's parents will come to pick him up. As pt was leaving hospital for discharge, this worker saw him leaving and wished him well. He reported that he was headed to [facility] from here. Pt's mother and father were here to pick him up. Pts mother reported to this worker that she appreciates the information that her son was given, and also reported that he shared with her that this worker was helpful to him. They are wished well.
--- NOTE | 2019-05-18 16:14 | Discharge Summary ---
Discharge Summary Hospital Course Was the Problem List Reviewed?: Yes Problems/Dx: (1) Alcohol dependence with withdrawal Status: Acute (2) Leukopenia Status: Resolved (3) Thrombocytopenia Status: Resolved (4) Essential tremor Status: Chronic Hospital Course Date of Admission: May 14, 2019 at 17:06 Admission Diagnosis : alcohol dependence with withdrawal Family Physician/Provider: Date of Discharge: 05/18/19 Discharge Diagnosis: alcohol dependence with withdrawal Hospital Course: Ta Delacruz is a 43-year-old male with history of alcohol dependence who presented with alcohol withdrawal. He was admitted to the intensive care unit and required IV Ativan and Precedex for his withdrawal. His course was complicated by leukopenia and thrombocytopenia which resolved. He also has an essential tremor and was started on propranolol. He was discharged home in stab le condition. He plans to follow up at [facility] today. Labs and Pending Lab Test: Laboratory Tests 05/18/19 04:40: White Blood Count 5.0, Red Blood Count 4.17L, Hemoglobin 13.8, Hematocrit 41, Mean Corpuscular Volume 97, Mean Corpuscular Hemoglobin 33, Mean Corpuscular Hemoglobin Concent 34, Red Cell Distribution Width 13.4, Platelet Count 129L, Mean Platelet Volume 11.6H, Neutrophils (%) (Auto) 48, Lymphocytes (%) (Auto) 24, Monocytes (%) (Auto) 25H, Eosinophils (%) (Auto) 2, Basophils (%) (Auto) 0, Neutrophils # (Auto) 2.4, Lymphocytes # (Auto) 1.2, Monocytes # (Auto) 1.3H, Eosinophils # (Auto) 0.1, Basophils # (Auto) 0.0, Neutrophils % (Manual) 48, Lymphocytes % (Manual) 26, Monocytes % (Manual) 22, Eosinophils % (Manual) 3, Metamyelocytes % 1, Blood Morphology Comment NORMAL, Sodium Level 139, Potassium Level 4.1, Chloride Level 106, Carbon Dioxide Level 23, Anion Gap 10, Blood Urea Nitrogen 11, Creatinine 0.80, Estimat Glomerular Filtration Rate > 60, BUN/Creatinine Ratio 14, Glucose Level 101, Calcium Level 9.2, Corrected Calcium 9.3, Phosphorus Level 4.4, Magnesium Level 1.9, Total Bilirubin 0.7, Aspartate Amino Transf (AST/SGOT) 56H, Alanine Aminotransferase (ALT/SGPT) 61H, Alkaline Phosphatase 48, Total Protein 6.5, Albumin 3.9 Microbiology 05/14/19 MRSA Screen - Final, Complete MRSA not isolated Home Meds Active Propranolol HCl 20 Mg Tablet 40 Mg PO BID 30 Days Reported Claritin (Loratadine) 10 Mg Tablet 10 Mg PO DAILY PRN Lisinopril 10 Mg Tablet 10 Mg PO DAILY LAST FILLED 03-29-2019 #30/30 DAY SUPPLY Assessment/Pt Instructions take medications as prescribed. Follow-up with your primary care doctor. Discharge Planning: <30 minutes discharge planning Discharge Instructions Discharge Diet: No Restrictions Activity as Tolerated: Yes Discharge Physical Examination Vital Signs Vital Signs Date Time Temp Pulse Resp B/P (MAP) Pulse Ox O2 Delivery O2 Flow Rate FiO2 05/18/19 10:57 05/18/19 08:00 36.8 86 18 96 Room Air General Appearance: No Apparent Distress, WD/WN Respiratory: Lungs Clear, Normal Breath Sounds, No Respiratory Distress Cardiovascular: Regular Rate, Rhythm, No Edema, No Murmur Gastrointestinal: Normal Bowel Sounds, Non Tender, Soft Extremity: Normal Inspection, Non Tender, No Pedal Edema Skin: Normal Color, Warm/Dry Neurologic/Psychiatric: Alert, Oriented x3, No Motor/Sensory Deficits, Normal Mood/Affect Allergies: Coded Allergies: No Known Drug Allergies (Unverified , 05/14/19) Copy Copies To 1: COSTA LUTZ MD Discharge Summary Date of Admission May 14, 2019 at 17:06 Date of Discharge May 18, 2019 at 11:45 Discharge Date: May 18, 2019 Discharge Time: 09:15 Admission Diagnosis Alcohol dependence with acute alcohol withdrawal Discharge Diagnosis Alcohol dependence with withdrawal (1) Alcohol dependence with withdrawal Status: Acute (2) Leukopenia Status: Resolved (3) Thrombocytopenia Status: Resolved (4) Essential tremor Status: Chronic Clinical Quality Measures DVT/VTE Risk/Contraindication: Risk Factor Score Per Nursin RFS Level Per Nursing on Admit: 1=Low/No VTE PPX TRACY QUINTERO MD May 18, 2019 16:13
--- OUTSIDE RECORDS SUMMARY | 2019-05-19 11:51 | XMS REPORT | Continuity of Care Document ---
Author Organization Unknown Address Unknown Phone Unavailable Allergies Active Description Code Type Severity Reaction Onset Reported/Identified Relationship to Patient Clinical Status Yes NO KNOWN DRUG ALLERGIES UNKNOWN UNKNOWN Yes No Known Drug Allergies [id number] Drug Allergy Unknown N/A 05/14/2019 Medications Medication Packaging Start Date St op Date Route Dosage Sig LIDOCAINE 1% MPF INJ 1 % (XYLOCAINE (MPF) ml 02/09/2019 02/09/2019 ONCE&1445 TETANUS,DIPTH,PERT ADULT INJ 0 (ADACEL SYRINGE) ML 02/09/2019 02/09/2019 ONCE&1501 POLY/BACI/NEOM OINT OINT (NEOSPORIN) alis 02/09/2019 02/09/2019 ONCE&1501 LORAZEPAM TAB 1 MG (ATIVAN) MG 05/14/2019 05/14/2019 ONCE&1154 THIAMINE VIAL 2CC INJ 100 MG /CC (VIT B1 2CC VIAL) MG 05/14/2019 05/14/2019 ONCE&1155 NORMAL SALINE 500CC IV BAG I NJ 0.9 % (NS 500CC IV BAG) ml 05/14/2019 05/14/2019 ONCE&1206 MAGNESIUM SULFATE VIAL INJ 1 GM/2CC (MAG SULFATE 2CC VIAL) GM 05/14/2019 05/14/2019 ONCE&1351 NORMAL SALINE 1000CC IV BAG INJ 0.9 % (NS 1000CC IV BAG) ml 05/14/2019 05/14/2019 ONCE&1351 LORAZEPAM TAB 1 MG (ATIVAN) MG 05/14/2019 05/14/2019 ONCE&1405 LORAZEPAM 1CC VIAL INJ 2 MG/CC (ATIVAN VIA L) MG 05/14/2019 05/14/2019 ONCE&1433 Problems Date Dx Coded Attending Type Code Diagnosis Diagnosed By 02/09/2019 W 882.0 OPEN WOUND OF HAND EXCEPT FINGERS ALONE, WITHOUT MENTION OF COMPLICATION 02/09/2019 W S61.412A L ACERATION WITHOUT FOREIGN BODY OF LEFT HAND, INIT ENCNTR 05/17/2019 LEON FREGOSOTRACY Ot D69. 59 OTHER SECONDARY THROMBOCYTOPENIA 05/17/2019 TRACY QUINTERO MD Ot D72.819 DECREASED WHITE BLOOD CELL COUNT, UNSPEC 05/17/2019 TRACY QUINTERO MD M Ot F10.232 ALCOHOL DEPENDENCE W WITHDRAWAL WITH PER 05/17/2019 TRACY QUINTERO MD M Ot F10.239 ALCOHOL DEPENDENCE WITH WITHDRAWAL, UNSP 05/17/2019 TRACY QUINTERO MD Ot F41. 9 ANXIETY DISORDER, UNSPECIFIED 05/17/2019 TRACY QUINTERO MD Ot K70. 10 ALCOHOLIC HEPATITIS WITHOUT ASCITES 05/17/2019 TRACY QUINTERO MD Ot D69. 59 OTHER SECONDARY THROMBOCYTOPENIA 05/17/2019 TRACY QUINTERO MD Ot D72.819 DECREASED WHITE BLOOD CELL COUNT, UNSPEC 05/17/2019 TRACY QUINTERO MD Ot F10.232 ALCOHOL DEPENDENCE W WITHDRAWAL WITH PER 05/17/2019 TRACY QUINTERO MD Ot F10.239 ALCOHOL DEPENDENCE WITH WITHDRAWAL, UNSP 05/17/2019 TRACY QUINTERO MD Ot F41. 9 ANXIETY DISORDER, UNSPECIFIED 05/17/2019 TRACY QUINTERO MD Ot K70. 10 ALCOHOLIC HEPATITIS WITHOUT ASCITES 05/18/2019 TRACY QUINTERO MD Ot D69. 59 OTHER SECONDARY THROMBOCYTOPENIA 05/18/2019 TRACY QUINTERO MD Ot D72.819 DECREASED WHITE BLOOD CELL COUNT, UNSPEC 05/18/2019 TRACY QUINTERO MD M Ot F10.232 ALCOHOL DEPENDENCE W WITHDRAWAL WITH PER 05/18/2019 TRACY QUINTERO MD Ot F10.239 ALCOHOL DEPENDENCE WITH WITHDRAWAL, UNSP 05/18/2019 TRACY QUINTERO MD Ot F41. 9 ANXIETY DISORDER, UNSPECIFIED 05/18/2019 TRACY QUINTERO MD Ot K70. 10 ALCOHOLIC HEPATITIS WITHOUT ASCITES Procedures There is no data. Results Test Result Range Rapid Drug Screen,Medical - 05/14/19 11: 55 Amphetamine NEGATIVE NEGATIVE Barbiturates NEGATIVE NEGATIVE Benzodiazepines POSITIVE NEGATIVE Cocaine NEGATIVE NEGATIVE Marijuana POSITIVE NEGATIVE Methylenedioxymethamphetamine NEGATIVE NEGATIVE Opiates NEGATIVE NEGATIVE Oxycodone NEGATIVE NEGATIVE Phencyclidine NEGATIVE NEGATIVE Propoxyphene NEGATIVE NEGATIVE Tricyclic Antidepressant NEGATIVE NEGAT RUBINA Urine Culture - 05/14/19 11:55 PRELIM CULTURE RESULTS No Growth 24 hours FINAL CULTURE RESULTS No Growth 48 hours MEDIA PLATED Setup at 1200 on 05/14/2019 CULTURE SOURCE clean catch Protime - 05/14/19 12:04 INR 1.1 1.0-4.0 Protime 12.3 Sec 9.9-12.8 Arterial Blood Gas - 05/14/19 13:41 Base -3.00 mmol/L 1.80-4.20 HCO3 21 mmol/L 20-31 O2 Sat 97 RM AIR % 95-100 pCO2 30 mm/Hg 35-45 pH 7.45 7.35-7.45 PO2 83 mm/Hg 80-95 Methicillin resistant Staphylococcus aur eus (MRSA) screening culture - 05/14/19 17:42 Methicillin resistant Staphylococcus aureus (MRSA) scr eening culture NEG NRG Capillary blood glucose measurement by g lucometer (mass/volume) - 05/14/19 21:24 Capillary blood glucose measurement by glucometer (mas s/volume) 117 mg/dL 70-110 Complete blood count (CBC) with automate d white blood cell (WBC) differential - 05/15/19 03:41 Blood leukocytes automated count (number/volume) 3.3 10*3/uL 4.3-11.0 Blood erythrocytes automated count (number/volume) 4.37 10*6/uL 4.35-5.85 Venous blood hemoglobin measurement (mass/volume) 14.1 g/dL 13.3-17.7 Blood hematocrit (volume fraction) 43 % 40-54 Automated erythrocyte mean corpuscular volume 98 [ foz_us] 80-99 Automated erythrocyte mean corpuscular h emoglobin (mass per erythrocyte) 32 pg 25-34 Automated erythrocyte mean corpuscular h emoglobin concentration measurement (mass/volume) 33 g/dL 32-36 Automated erythrocyte distribution width ratio 13. 9 % 10.0- 14.5 Automated blood platelet count (count/volume) 55 1 0*3/uL 130-400 Automated blood platelet mean volume measurement 12.6 [foz_us] 7.4-10.4 Automated blood neutrophils/100 leukocytes 58 % 42-75 Automated blood lymphocytes/100 leukocytes 26 % 12-44 Blood monocytes/100 leukocytes 14 % 0-12 Automated blood eosinophils/100 leukocytes 2 % 0-10 Automated blood basophils/100 leukocytes 0 % 0-10 Blood neutrophils automated count (number/volume) 1.9 10*3 1.8-7.8 Blood lymphocytes automated count (number/volume) 0.8 10*3 1.0-4.0 Blood monocytes automated count (number/volume) 0. 4 10*3 0.0-1.0 Automated eosinophil count 0.1 10*3/uL 0 .0-0.3 Automated blood basophil count (count/volume) 0.0 10*3/uL 0.0-0.1 Comprehensive metabolic panel - 05/15/19 03:41 Serum or plasma sodium measurement (moles/volume) 138 mmol/L 135-145 Serum or plasma potassium measurement (moles/volume) 3.8 mmol/L 3.6-5.0 Serum or plasma chloride measurement (moles/volume) 104 mmol/L 98-107 Carbon dioxide 20 mmol/L 21-32 Serum or plasma anion gap determination (moles/volume) 14 mmol/L 5-14 Serum or plasma urea nitrogen measurement (mass/volume ) 7 mg/dL 7-18 Serum or plasma creatinine measurement (mass/volume) 0.67 mg/dL 0.60-1.30 Serum or plasma urea nitrogen/creatinine mass ratio 10 NRG Serum or plasma creatinine measurement w ith calculation of estimated glomerular filtration rate > NRG Serum or plasma glucose measurement (mass/volume) 95 mg/dL 70-105 Serum or plasma calcium measurement (mass/volume) 8.9 mg/dL 8.5-10.1 Serum or plasma total bilirubin measurement (mass/volu me) 1.8 mg/dL 0.1-1.0 Serum or plasma alkaline phosphatase timbo surement (enzymatic activity/volume) 47 U/L 40-136 Serum or plasma aspartate aminotransfera se measurement (enzymatic activity/volume) 95 U/L 5-34 Serum or plasma alanine aminotransferase measurement (enzymatic activity/volume) 73 U/L 0-55 Serum or plasma protein measurement (mass/volume) 6.3 g/dL 6.4-8.2 Serum or plasma albumin measurement (mass/volume) 4.1 g/dL 3.2-4.5 CALCIUM CORRECTED 8.8 mg/dL 8.5-10.1 Serum or plasma phosphate measurement (m ass/volume) - 05/15/19 03:41 Serum or plasma phosphate measurement (mass/volume) 4.0 mg/dL 2.3-4.7 Magnesium - 05/15/19 03:41 Magnesium 2.1 mg/dL 1.6-2.4 Serum or plasma folate measurement (mass /volume) - 05/15/19 10:30 Serum or plasma folate measurement (mass/volume) > % >=4.0 VITAMIN B 12 - 05/15/19 10:30 VITAMIN B 12 751 pg/mL 190-1100 Capillary blood glucose measurement by g lucometer (mass/volume) - 05/15/19 11:55 Capillary blood glucose measurement by glucometer (mas s/volume) 127 mg/dL 70-110 Capillary blood glucose measurement by g lucometer (mass/volume) - 05/15/19 15:30 Capillary blood glucose measurement by glucometer (mas s/volume) 104 mg/dL 70-110 Capillary blood glucose measurement by g lucometer (mass/volume) - 05/15/19 20:36 Capillary blood glucose measurement by glucometer (mas s/volume) 111 mg/dL 70-110 Complete blood count (CBC) with automate d white blood cell (WBC) differential - 05/16/19 03:21 Blood leukocytes automated count (number/volume) 4.7 10*3/uL 4.3-11.0 Blood erythrocytes automated count (number/volume) 4.14 10*6/uL 4.35-5.85 Venous blood hemoglobin measurement (mass/volume) 13.7 g/dL 13.3-17.7 Blood hematocrit (volume fraction) 40 % 40-54 Automated erythrocyte mean corpuscular volume 97 [ foz_us] 80-99 Automated erythrocyte mean corpuscular h emoglobin (mass per erythrocyte) 33 pg 25-34 Automated erythrocyte mean corpuscular h emoglobin concentration measurement (mass/volume) 34 g/dL 32-36 Automated erythrocyte distribution width ratio 13. 6 % 10.0- 14.5 Automated blood platelet count (count/volume) 63 1 0*3/uL 130-400 Automated blood platelet mean volume measurement 11.6 [foz_us] 7.4-10.4 Automated blood neutrophils/100 leukocytes 66 % 42-75 Automated blood lymphocytes/100 leukocytes 20 % 12-44 Blood monocytes/100 leukocytes 12 % 0-12 Automated blood eosinophils/100 leukocytes 2 % 0-10 Automated blood basophils/100 leukocytes 0 % 0-10 Blood neutrophils automated count (number/volume) 3.1 10*3 1.8-7.8 Blood lymphocytes automated count (number/volume) 1.0 10*3 1.0-4.0 Blood monocytes automated count (number/volume) 0. 6 10*3 0.0-1.0 Automated eosinophil count 0.1 10*3/uL 0 .0-0.3 Automated blood basophil count (count/volume) 0.0 10*3/uL 0.0-0.1 Comprehensive metabolic panel - 05/16/19 03:21 Serum or plasma sodium measurement (moles/volume) 138 mmol/L 135-145 Serum or plasma potassium measurement (moles/volume) 3.7 mmol/L 3.6-5.0 Serum or plasma chloride measurement (moles/volume) 107 mmol/L 98-107 Carbon dioxide 21 mmol/L 21-32 Serum or plasma anion gap determination (moles/volume) 10 mmol/L 5-14 Serum or plasma urea nitrogen measurement (mass/volume ) 8 mg/dL 7-18 Serum or plasma creatinine measurement (mass/volume) 0.75 mg/dL 0.60-1.30 Serum or plasma urea nitrogen/creatinine mass ratio 11 NRG Serum or plasma creatinine measurement w ith calculation of estimated glomerular filtration rate > NRG Serum or plasma glucose measurement (mass/volume) 107 mg/dL 70-105 Serum or plasma calcium measurement (mass/volume) 8.7 mg/dL 8.5-10.1 Serum or plasma total bilirubin measurement (mass/volu me) 1.3 mg/dL 0.1-1.0 Serum or plasma alkaline phosphatase timbo surement (enzymatic activity/volume) 46 U/L 40-136 Serum or plasma aspartate aminotransfera se measurement (enzymatic activity/volume) 50 U/L 5-34 Serum or plasma alanine aminotransferase measurement (enzymatic activity/volume) 56 U/L 0-55 Serum or plasma protein measurement (mass/volume) 6.1 g/dL 6.4-8.2 Serum or plasma albumin measurement (mass/volume) 3.9 g/dL 3.2-4.5 CALCIUM CORRECTED 8.8 mg/dL 8.5-10.1 Serum or plasma phosphate measurement (m ass/volume) - 05/16/19 03:21 Serum or plasma phosphate measurement (mass/volume) 3.6 mg/dL 2.3-4.7 Magnesium - 05/16/19 03:21 Magnesium 2.1 mg/dL 1.6-2.4 Capillary blood glucose measurement by g lucometer (mass/volume) - 05/16/19 11:56 Capillary blood glucose measurement by glucometer (mas s/volume) 119 mg/dL 70-110 Capillary blood glucose measurement by g lucometer (mass/volume) - 05/16/19 16:13 Capillary blood glucose measurement by glucometer (mas s/volume) 87 mg/dL 70-110 Capillary blood glucose measurement by g lucometer (mass/volume) - 05/16/19 20:50 Capillary blood glucose measurement by glucometer (mas s/volume) 117 mg/dL 70-110 Complete blood count (CBC) with automate d white blood cell (WBC) differential - 05/17/19 03:07 Blood leukocytes automated count (number/volume) 4.9 10*3/uL 4.3-11.0 Blood erythrocytes automated count (number/volume) 4.08 10*6/uL 4.35-5.85 Venous blood hemoglobin measurement (mass/volume) 13.2 g/dL 13.3-17.7 Blood hematocrit (volume fraction) 41 % 40-54 Automated erythrocyte mean corpuscular volume 100 [foz_us] 80-99 Automated erythrocyte mean corpuscular h emoglobin (mass per erythrocyte) 32 pg 25-34 Automated erythrocyte mean corpuscular h emoglobin concentration measurement (mass/volume) 33 g/dL 32-36 Automated erythrocyte distribution width ratio 13. 1 % 10.0- 14.5 Automated blood platelet count (count/volume) 82 1 0*3/uL 130-400 Automated blood platelet mean volume measurement 12.2 [foz_us] 7.4-10.4 Automated blood neutrophils/100 leukocytes 53 % 42-75 Automated blood lymphocytes/100 leukocytes 28 % 12-44 Blood monocytes/100 leukocytes 17 % 0-12 Automated blood eosinophils/100 leukocytes 2 % 0-10 Automated blood basophils/100 leukocytes 0 % 0-10 Blood neutrophils automated count (number/volume) 2.6 10*3 1.8-7.8 Blood lymphocytes automated count (number/volume) 1.4 10*3 1.0-4.0 Blood monocytes automated count (number/volume) 0. 8 10*3 0.0-1.0 Automated eosinophil count 0.1 10*3/uL 0 .0-0.3 Automated blood basophil count (count/volume) 0.0 10*3/uL 0.0-0.1 Comprehensive metabolic panel - 05/17/19 03:07 Serum or plasma sodium measurement (moles/volume) 137 mmol/L 135-145 Serum or plasma potassium measurement (moles/volume) 3.8 mmol/L 3.6-5.0 Serum or plasma chloride measurement (moles/volume) 107 mmol/L 98-107 Carbon dioxide 20 mmol/L 21-32 Serum or plasma anion gap determination (moles/volume) 10 mmol/L 5-14 Serum or plasma urea nitrogen measurement (mass/volume ) 8 mg/dL 7-18 Serum or plasma creatinine measurement (mass/volume) 0.74 mg/dL 0.60-1.30 Serum or plasma urea nitrogen/creatinine mass ratio 11 NRG Serum or plasma creatinine measurement w ith calculation of estimated glomerular filtration rate > NRG Serum or plasma glucose measurement (mass/volume) 103 mg/dL 70-105 Serum or plasma calcium measurement (mass/volume) 8.9 mg/dL 8.5-10.1 Serum or plasma total bilirubin measurement (mass/volu me) 0.8 mg/dL 0.1-1.0 Serum or plasma alkaline phosphatase timbo surement (enzymatic activity/volume) 42 U/L 40-136 Serum or plasma aspartate aminotransfera se measurement (enzymatic activity/volume) 51 U/L 5-34 Serum or plasma alanine aminotransferase measurement (enzymatic activity/volume) 56 U/L 0-55 Serum or plasma protein measurement (mass/volume) 5.9 g/dL 6.4-8.2 Serum or plasma albumin measurement (mass/volume) 3.7 g/dL 3.2-4.5 CALCIUM CORRECTED 9.1 mg/dL 8.5-10.1 Serum or plasma phosphate measurement (m ass/volume) - 05/17/19 03:07 Serum or plasma phosphate measurement (mass/volume) 3.6 mg/dL 2.3-4.7 Magnesium - 05/17/19 03:07 Magnesium 1.8 mg/dL 1.6-2.4 Complete blood count (CBC) with automate d white blood cell (WBC) differential - 05/18/19 04:40 Blood leukocytes automated count (number/volume) 5.0 10*3/uL 4.3-11.0 Blood erythrocytes automated count (number/volume) 4.17 10*6/uL 4.35-5.85 Venous blood hemoglobin measurement (mass/volume) 13.8 g/dL 13.3-17.7 Blood hematocrit (volume fraction) 41 % 40-54 Automated erythrocyte mean corpuscular volume 97 [ foz_us] 80-99 Automated erythrocyte mean corpuscular h emoglobin (mass per erythrocyte) 33 pg 25-34 Automated erythrocyte mean corpuscular h emoglobin concentration measurement (mass/volume) 34 g/dL 32-36 Automated erythrocyte distribution width ratio 13. 4 % 10.0- 14.5 Automated blood platelet count (count/volume) 129 10*3/uL 130-400 Automated blood platelet mean volume measurement 11.6 [foz_us] 7.4-10.4 Automated blood neutrophils/100 leukocytes 48 % 42-75 Automated blood lymphocytes/100 leukocytes 24 % 12-44 Blood monocytes/100 leukocytes 25 % 0-12 Automated blood eosinophils/100 leukocytes 2 % 0-10 Automated blood basophils/100 leukocytes 0 % 0-10 Blood neutrophils automated count (number/volume) 2.4 10*3 1.8-7.8 Blood lymphocytes automated count (number/volume) 1.2 10*3 1.0-4.0 Blood monocytes automated count (number/volume) 1. 3 10*3 0.0-1.0 Automated eosinophil count 0.1 10*3/uL 0 .0-0.3 Automated blood basophil count (count/volume) 0.0 10*3/uL 0.0-0.1 Comprehensive metabolic panel - 05/18/19 04:40 Serum or plasma sodium measurement (moles/volume) 139 mmol/L 135-145 Serum or plasma potassium measurement (moles/volume) 4.1 mmol/L 3.6-5.0 Serum or plasma chloride measurement (moles/volume) 106 mmol/L 98-107 Carbon dioxide 23 mmol/L 21-32 Serum or plasma anion gap determination (moles/volume) 10 mmol/L 5-14 Serum or plasma urea nitrogen measurement (mass/volume ) 11 mg/dL 7-18 Serum or plasma creatinine measurement (mass/volume) 0.80 mg/dL 0.60-1.30 Serum or plasma urea nitrogen/creatinine mass ratio 14 NRG Serum or plasma creatinine measurement w ith calculation of estimated glomerular filtration rate > NRG Serum or plasma glucose measurement (mass/volume) 101 mg/dL 70-105 Serum or plasma calcium measurement (mass/volume) 9.2 mg/dL 8.5-10.1 Serum or plasma total bilirubin measurement (mass/volu me) 0.7 mg/dL 0.1-1.0 Serum or plasma alkaline phosphatase timbo surement (enzymatic activity/volume) 48 U/L 40-136 Serum or plasma aspartate aminotransfera se measurement (enzymatic activity/volume) 56 U/L 5-34 Serum or plasma alanine aminotransferase measurement (enzymatic activity/volume) 61 U/L 0-55 Serum or plasma protein measurement (mass/volume) 6.5 g/dL 6.4-8.2 Serum or plasma albumin measurement (mass/volume) 3.9 g/dL 3.2-4.5 CALCIUM CORRECTED 9.3 mg/dL 8.5-10.1 Serum or plasma phosphate measurement (m ass/volume) - 05/18/19 04:40 Serum or plasma phosphate measurement (mass/volume) 4.4 mg/dL 2.3-4.7 Magnesium - 05/18/19 04:40 Magnesium 1.9 mg/dL 1.6-2.4 Manual absolute plasma cell count - 08/31 04:40 Blood monocytes/100 leukocytes 22 % NRG Manual blood segmented neutrophils/100 leukocytes 48 % NRG Manual blood lymphocytes/100 leukocytes 26 % NRG Manual eosinophils/100 leukocytes in nose 3 % NRG Blood erythrocyte morphology finding identification NORMAL NRG Manual blood metamyelocytes/100 leukocytes 1 % NRG Encounters ACCT No. Visit Date/Time Discharge Status Pt. Type Provider Facility Loc./Unit Complaint [id number] 05/14/2019 11:22:00 05/14/2019 16:10 :00 [id number] 15:03:49 Document Registration [id number] 02/09/2019 14:41:00 Document Registration [id number] 05/14/2019 17:06:00 020 11:45:00 DIS Inpatient LEON FREGOSO, TRACY Hayes [facility] [address] 4TH ALCOHOL DETOX, LOW PLAT ELETS
== END 2019-05-18 11:45 | disposition home or self-care (01) | DRG 897 ==
LOC: ICU 17:06 → 4TH 05-17 15:56
PROVIDERS: ADMIT Internal Medicine; ATTEND Internal Medicine
DX: F10.239 Alcohol dependence with withdrawal, unspecified (principal); F41.9 Anxiety disorder, unspecified; K70.10 Alcoholic hepatitis without ascites; D72.819 Decreased white blood cell count, unspecified; D69.59 Other secondary thrombocytopenia; G25.0 Essential tremor
CPT/HCPCS: 36415; 71045; 80053; 82607; 82746; 82962; 83735; 84100; 85007; 85025; 85027; 87081